=== PATIENT | male | born 1985 | race African-American/Black ===

== ENCOUNTER 2020-03-16 08:00 | Outpatient (CLI) | payer BC | END 2020-03-16 19:03 | disposition home or self-care (01) | LOC: US 08:00 | DX: R10.13 Epigastric pain (principal); R11.2 Nausea with vomiting, unspecified ==

== ENCOUNTER 2020-03-24 16:19 | Outpatient (CLI) | payer BC | END 2020-03-24 19:40 | disposition home or self-care (01) | LOC: RAD 16:19 | DX: R05 Cough (principal); R06.02 Shortness of breath; R19.7 Diarrhea, unspecified; R43.2 Parageusia; Z20.828 Contact with and (suspected) exposure to other viral communicable diseases ==

== ENCOUNTER 2021-09-17 13:20 | Outpatient (CLI) | payer BC ==
[2021-09-17 13:54] LABS: PLATELET COUNT 149 K/uL (142-355)
[2021-09-17 14:09] LABS: POTASSIUM 3.8 mmol/L (3.6-5.2)
== END 2021-09-17 19:57 | disposition home or self-care (01) ==
LOC: LABW 13:20
PROVIDERS: ATTEND Student in an Organized Health Care Education/Training Program
DX: A60.9 Anogenital herpesviral infection, unspecified (principal); Z11.3 Encounter for screening for infections with a predominantly sexual mode of transmission; E78.5 Hyperlipidemia, unspecified; E03.9 Hypothyroidism, unspecified
CPT/HCPCS: 36415; 80053; 80061; 84439; 84443; 85027; 86695; 86696

== ENCOUNTER 2022-09-29 09:18 | Outpatient (CLI) | payer BC | END 2022-09-29 19:04 | disposition home or self-care (01) | LOC: US 09:18 | PROVIDERS: ATTEND Nurse Practitioner Family | DX: R74.01 Elevation of levels of liver transaminase levels (principal); Z20.2 Contact with and (suspected) exposure to infections with a predominantly sexual mode of transmission; R74.8 Abnormal levels of other serum enzymes ==